=== PATIENT | male | born 1955 | race Caucasian/White ===

== ENCOUNTER 2019-08-31 18:02 | Emergency (ER) | payer OTHER ==
[~2019-08-31] VITALS: Ht 177.8 cm; Wt 74.8 kg
[2019-08-31] MEDS ORDERED: NAPROSYN500 M1 PO (18:10)
[2019-08-31] MEDS ORDERED: TRAMADOL 50 MG50 MG PO (18:10)
[2019-08-31] MEDS ORDERED: CENTANY30 GM TOP (18:34)
[2019-08-31 19:20] VITALS: BP 139/54
== END 2019-08-31 19:20 | disposition home or self-care (01) ==
LOC: M.ERS 18:02
DX: S61.511A Laceration without foreign body of right wrist, initial encounter (principal); W25.XXXA Contact with sharp glass, initial encounter; Y93.89 Activity, other specified; Y92.89 Other specified places as the place of occurrence of the external cause; Y99.8 Other external cause status